=== PATIENT | male | born 1945 | race Caucasian/White ===

== ENCOUNTER → 2016-12-10 | Day surgery (SDC) | payer OTHER, BC ==
[2016-12-03 11:33] VITALS: BMI 33.0
[~2016-12-10] VITALS: Ht 167.6 cm; Wt 95.5 kg
[~2016-12-10] MED LIST: ASPCH81X PO; ATOR-24 PO; GLUCTAB7 PO; IBUP-1277 PO; LIDOCAINE HCL 2% 2 ML VIAL (20MG/ML) ONE; PROPOFOL IV EMULSION 10 MG/ML 20 ML VIAL IV ONE; TAMS0.4C38 PO
[2016-12-10 13:26] VITALS: Ht 167.6 cm; Wt 95.5 kg
--- NOTE | 2016-12-10 13:48 | Endo History and Physical ---
History & Physical Date of Service: Dec 10, 2016. Chief Complaint: HISTORY OF POLYPS Referring Physician: DR Walker MCKEON History of Present Illness For colonoscopy Past Surgical History Hx Cardiac Surgery: No Hx Internal Defibrillator: No Hx Pacemaker: No Hx Abdominal Surgery: Yes (HERNIA REPAIR) Hx of Implantable Prosthesis: No Hx Post-Op Nausea and Vomiting: No Hx Cancer Surgery: Yes (BCC REMOVALS) Hx Thoracic Surgery: No Hx Orthopedic: Yes (RT RCR) Hx Urinary Tract Surgery: No Family History None Social History Smoking Status: Former Smoker Hx Substance Use: No Hx Alcohol Use: Yes (OCCASIONAL) Allergies Coded Allergies: NO KNOWN DRUG ALLERGIES (Verified Allergy, Unknown, ., 12/10/16) Current Medications Reported Home Medications Medications Dose Route/Sig Max Daily Dose Days Date Category Advil (Ibuprofen) 200 Mg Tab 400 Mg PO DAILY PRN 03/19/16 Reported Glucosamine Chondroitin (Ftxnjpcyeoc-Bckeliqrmcb-Vhd C-) 1 Tab Tab 1,500 Mg PO QPM 03/19/16 Reported Aspirin Chewable (Aspirin) 81 Mg Chew 81 Mg PO QPM 09/28/15 Reported Flomax (Tamsulosin Hcl) 0.4 Mg Cap 0.4 Mg PO QPM 09/28/15 Reported Lipitor (Atorvastatin Calcium) 40 Mg Tab 40 Mg PO QPM 09/28/15 Reported Vital Signs Weight (Kilograms): 95.45 Height (Feet): 5 Height (Inches): 6 Date Time Temp Pulse Resp B/P (MAP) Pulse Ox O2 Delivery O2 Flow Rate FiO2 12/10/16 13:30 36.6 81 20 145/70 (95) 95 Room Air Physical Exam General Appearance: WD/WN Respiratory/Chest: Respiratory effort: no dyspnea Cardiovascular: Heart Auscultation: RRR Abdomen: Inspection & Palpation: soft Assessment and Plan Hx of polyps for colonoscopy
--- NOTE | 2016-12-10 14:16 | Discharge Instructions ---
Endoscopy Patient Instructions Date / Procedure(s) Performed Dec 10, 2016. Colonoscopy Allergy Information Coded Allergies: NO KNOWN DRUG ALLERGIES (Verified Allergy, Unknown, ., 12/10/16) Discharge Date / Findings Dec 10, 2016. polyps Medication Instructions Restart Stopped Medication(s): resume meds Reported Home Medications Medications Dose Route/Sig Max Daily Dose Days Date Category Advil (Ibuprofen) 200 Mg Tab 400 Mg PO DAILY PRN 03/19/16 Reported Glucosamine Chondroitin (Wyctjlnmity-Rvnzpuyjcik-Bwb C-) 1 Tab Tab 1,500 Mg PO QPM 03/19/16 Reported Aspirin Chewable (Aspirin) 81 Mg Chew 81 Mg PO QPM 09/28/15 Reported Flomax (Tamsulosin Hcl) 0.4 Mg Cap 0.4 Mg PO QPM 09/28/15 Reported Lipitor (Atorvastatin Calcium) 40 Mg Tab 40 Mg PO QPM 09/28/15 Reported Provider Instructions Activity Restrictions - No exercising or heavy lifting for 24 hours. - Do not drink alcohol the day of the procedure. - Do not drive a car or operate machinery until the day after the procedure. - Do not make any important decisions or sign important papers in 24 hours after the procedure. Following Day: - Return to full activity which may include returning to work/school. Diet Start your diet with liquids and light foods (jello, soup, juice, toast). Then eat your usual diet if not nauseated. Treatment For Common After Affects For mild abdominal pain, bloating, or excessive gas: - Rest - Eat lightly - Lie on right side Follow-Up Information Follow-up with DR Walker MCKEON as scheduled Anesthesia Information What You Should Know You have had a procedure that required some medicine to reduce anxiety and discomfort. This treatment is called moderate sedation. After receiving the treatment, you may be sleepy, but you will be able to breathe on your own. The effects of the treatment may last for several hours. Follow these instructions along with Activity/Diet recommendations noted above: * Do NOT do anything where dizziness or clumsiness would be dangerous. * Rest quietly at home today, then you can be up and about tomorrow. * Have a responsible person stay with you the rest of today. * You may have had an I.V. today. If so, you may take the dressing off later today. Recommendations Call your doctor if: * Trouble breathing * Continuous vomiting for more than 24 hours * Temperature above 101 degrees * Severe abdominal pain or bloating * Pain not relieved by pain medicine ordered * There is increased drainage or redness from any incision * A large amount of rectal bleeding greater than 2-3 tablespoons. (If you had a polyp/s removed or have hemorrhoids, a small amount of blood - from the rectum is to be expected.) * You have any unanswered questions or concerns. IN THE EVENT OF A SERIOUS EMERGENCY, GO TO THE NEAREST EMERGENCY ROOM Your discharge instructions were prepared by provider Jeferson Myrick. Patient Instructions Signature Page Jace Ragsdale Patient (or Guardian) Signature/Date: I have read and understand the instructions given to me by my caregivers. Caregiver/RN/Doctor Signature/Date: The above-named patient and/or guardian has received patient instructions on this date. + Original Patient Signature Page (only) stays with chart. Please make copy for patient.
--- NOTE | 2016-12-10 14:21 | GI REPORT ---
Procedure Date: 12/10/2016 1:44 PM Procedure: Colonoscopy Indications: Personal history of colonic polyps Medicines: Propofol total dose 320 mg IV, Lidocaine 40 mg IV Complications: No immediate complications. Estimated Blood Loss: Estimated blood loss was minimal. Procedure: Pre-Anesthesia Assessment: - Prior to the procedure, a History and Physical was performed, and patient medications, allergies and sensitivities were reviewed. The patient's tolerance of previous anesthesia was reviewed. - The risks and benefits of the procedure and the sedation options and risks were discussed with the patient. All questions were answered and informed consent was obtained. After I obtained informed consent, the scope was passed under direct vision. Throughout the procedure, the patient's blood pressure, pulse, and oxygen saturations were monitored continuously. The scope was introduced through the anus and advanced to the terminal ileum. The colonoscopy was performed without difficulty. The patient tolerated the procedure well. The quality of the bowel preparation was excellent. Findings: Two sessile polyps were found in the ascending colon. The polyps were 2 to 3 mm in size. These polyps were removed with a cold biopsy forceps. Resection and retrieval were complete. Estimated blood loss: none. A 4 mm polyp was found in the mid transverse colon. The polyp was sessile. The polyp was removed with a cold snare. Resection and retrieval were complete. Estimated blood loss was minimal. The terminal ileum appeared normal. Impression: - Two 2 to 3 mm polyps in the ascending colon, removed with a cold biopsy forceps. Resected and retrieved. - One 4 mm polyp in the mid transverse colon, removed with a cold snare. Resected and retrieved. - The examined portion of the ileum was normal. Recommendation: - Discharge patient to home (ambulatory). - Continue present medications. - Await pathology results. - Return to primary care physician MIKEN. Jeferson Myrick M.D. Jeferson Myrick MD 12/10/2016 2:19:54 PM This report has been signed electronically. Note Initiated On: 12/10/2016 1:44 PM I attest to the content of the Intraoperative Record and orders documented therein, exceptions below
[2016-12-10 14:51] VITALS: BP 127/71; PULSE 75; O2SAT 94
--- NOTE | 2016-12-10 14:58 | Anesthesiology Progress Note ---
Anesthesia Post Op Note Date & Time Dec 10, 2016 at 14:58 Vital Signs Vital Signs Past 12 Hours Date Time Temp Pulse Resp B/P (MAP) Pulse Ox O2 Delivery O2 Flow Rate FiO2 12/10/16 14:51 75 16 127/71 (89) 94 Room Air 12/10/16 14:36 75 16 123/76 (92) 92 Room Air 12/10/16 14:21 76 16 134/76 (95) 95 Room Air 12/10/16 13:30 36.6 81 20 145/70 (95) 95 Room Air Notes Mental Status: alert / awake / arousable, participated in evaluation Pt Amnestic to Procedure: Yes Nausea / Vomiting: adequately controlled Pain: adequately controlled Airway Patency, RR, SpO2: stable & adequate BP & HR: stable & adequate Hydration State: stable & adequate Anesthetic Complications: no major complications apparent
== END | disposition home or self-care (01) ==
LOC: C.GI 13:09
PROVIDERS: ATTEND Internal Medicine Gastroenterology
DX: D12.6 Benign neoplasm of colon, unspecified (principal); Z87.19 Personal history of other diseases of the digestive system; Z87.891 Personal history of nicotine dependence; Z79.899 Other long term (current) drug therapy

== ENCOUNTER → 2017-07-08 | Outpatient (CLI) | payer OTHER, BC ==
[~2017-07-08] MED LIST changes: -LIDOCAINE HCL 2% 2 ML VIAL (20MG/ML) ONE; -PROPOFOL IV EMULSION 10 MG/ML 20 ML VIAL IV ONE
[2017-07-08 10:58] LABS: BASO % 0.2 %; BASO ABS # 0.02 K/uL (0-0.2); EOS % 1.3 %; EOS ABS # 0.12 K/uL (0-0.5); HEMATOCRIT 48.8 % (42-52); HEMOGLOBIN 16.5 g/dL (14.0-18.0); LYMPH % 20.8 %; LYMPH ABS # 1.87 K/uL (1.2-3.4); MEAN CELL VOLUME 88.4 fL (80-100); MEAN CORPUSCULAR HEMOGLOBIN 29.9 pg (25-34); MEAN CORPUSCULAR HGB CONC 33.8 g/dl (32-36); MEAN PLATELET VOLUME 9.3 fL (7.4-10.4); MONO ABS # 0.81 K/uL (0.11-0.59); NEUT % 68.7 %; NEUT ABS # 6.17 K/uL (1.4-6.5); PLATELET COUNT 235 K/uL (130-400); RED CELL DISTRIBUTION WIDTH CV 13.5 % (11.5-14.5); WHITE BLOOD COUNT 8.99 K/uL (4.8-10.8)
[2017-07-08 11:07] LABS: HEMOGLOBIN A1C 6.3 % (4.5-5.6)
[2017-07-08 11:11] LABS: ALBUMIN 4.2 gm/dl (3.4-5.0); ALT/SGPT 33 U/L (12-78); BLOOD UREA NITROGEN 19 mg/dl (7-18); CALCIUM 9.6 mg/dl (8.5-10.1); CARBON DIOXIDE 29 mmol/L (21-32); CHOLESTEROL 142 mg/dl (0-200); GLUCOSE 129 mg/dl (70-99); POTASSIUM 4.3 mmol/L (3.5-5.1); SODIUM 138 mmol/L (136-145)
[2017-07-08 11:14] LABS: ALKALINE PHOSPHATASE 71 U/L (45-117); AST/SGOT 22 U/L (15-37); LDL CHOLESTEROL CALCULATED 76 mg/dl; TOTAL PROTEIN 8.3 gm/dl (6.4-8.2)
== END | disposition home or self-care (01) ==
LOC: C.LABBC 08:26
PROVIDERS: ATTEND Internal Medicine
DX: E78.5 Hyperlipidemia, unspecified (principal); R73.01 Impaired fasting glucose; I35.0 Nonrheumatic aortic (valve) stenosis; N40.1 Benign prostatic hyperplasia with lower urinary tract symptoms; N20.0 Calculus of kidney; D12.6 Benign neoplasm of colon, unspecified

== ENCOUNTER → 2017-12-23 | Outpatient (CLI) | payer OTHER, BC | END | disposition home or self-care (01) | LOC: C.LABBC 10:43 | PROVIDERS: ATTEND Family Medicine Adult Medicine | DX: R20.2 Paresthesia of skin (principal) ==

== ENCOUNTER 2023-04-03 06:31 | Observation (INO) ==
--- NOTE | 2023-03-06 08:44 | History & Physical Report ---
Date of Service March 06, 2023 date of surgery: 04/03/23 Procedure: Left Total Knee Arthroplasty Surgeon: Bob Porter, DO Assessment & Plan (1) Arthritis of knee, left: Plan: Further care discussed with patient and at this point in time has failed conser vative measures and would like to proceed with a left total knee replacement. Plan on discharge will be home with home health physical therapy. DVT prophylaxiswith TEDs, SCDs and will also place on aspirin 81 mg p.o. b.i.d. for a month postop. Patient will have follow up appointment in our office two weeks post op for staple/suture removal and re-evaluation. Patient otherwise has no other questions or concerns. The risks and benefits have been discussed including, but not limited to, risk of infection, nerve injury, stiffness, loss of motion, failure to improve, etc. Reasonable outcomes and options of treatment were discussed. An explanation of appropriate alternatives to the procedure that may be advantageous were discussed and their risks and benefits, as well as the risks and benefits of not proceeding with treatment. I offered to answer any additional inquiries concerning the treatment involved. All the patient's questions were answered. The patient is agreeable, understanding of the treatment plan and alternatives, and wishes to proceed with the treatment plan. History of Present Illness Chief Complaint: left knee pain Primary Care Provider: AIDEN Fuller Jace is a pleasant 78-year-old male who presented for preop evaluation prior to his upcoming left total knee replacement. He has a longstanding history of left knee pain which is gradually worsened and is now affecting his daily activities including walking standing using stairs. He has undergone prior cortisone injection as well as viscosupplementation without relief. He has complaints of pain decreased range of motion and weakness. Rates his current pain is a 7 out of 10. At discussing further care he wishes to proceed with a left total knee replacement Allergies Allergy/AdvReac Type Severity Reaction Status Date / Time grass pollen Allergy Nasal Verified 12/14/22 08:58 Congestion pollen extracts Allergy Sneezing Verified 12/14/22 08:58 jardiance Allergy Numbness Uncoded 12/14/22 08:58 Home Medications Medication Instructions Recorded Confirmed Type aspirin 81 mg tablet,delayed 81 mg PO DAILY #30 tabs 12/25/18 12/14/22 Rx release acetaminophen 500 mg tablet 1,000 mg PO Q6H PRN Pain 07/13/21 12/14/22 History (Tylenol Extra Strength) tamsulosin 0.4 mg capsule 0.4 mg PO DAILY #90 caps 10/02/22 12/14/22 Rx atorvastatin 40 mg tablet 40 mg PO DAILY #90 tabs 11/15/22 12/14/22 Rx metformin 1,000 mg tablet 1,000 mg PO BID #180 tabs 12/10/22 12/14/22 Rx Past Med/Surg History Medical History Environmental allergies History of Mohs micrographic surgery for skin cancer Skin cancer BASAL CELL Calculus of kidney HX Carpal tunnel syndrome of left wrist Type 2 diabetes mellitus Esophageal reflux Diabetes mellitus History of torn meniscus of left knee BPH w urinary obs/LUTS Hyperlipidemia Surgical History History of esophagogastroduodenoscopy (EGD) Hx of colonoscopy Hx of cardiac catheterization 12/2020 S/P CABG x 2 01/13/2021- [facility] [place]- FOLLOWS W/ DR YU LAST VISIT 6 MOS AGO S/P AVR (aortic valve replacement) 01/13/2021 [facility] [place] Hx of tonsillectomy History of vein stripping H/O vasectomy S/P rotator cuff repair S/P inguinal hernia repair Family History Father Aortic stenosis Hypertension Diabetes Myocardial infarction Heart disease Brother Coronary heart disease Diabetes Amyloidosis Ulcerative colitis Mother Malignant melanoma, metastatic Cancer Other No family history of bleeding disorder Denies family history of Ovarian cancer Prostate cancer Breast cancer Lung cancer Colorectal cancer Stroke Asthma Social History Smoking Status: Never smoker Tobacco Type: Cigarettes Age Started Using Tobacco: 20; Age Quit Using Tobacco: 22; packs per day: 0.025; Second Hand Exposure: No; Do You Dip or Chew Tobacco: No; Hx Alcohol Use: Yes Alcohol type: wine Alcohol Intake Frequency: 4 or More x per/Week Hx Substance Use: No Preferred Language: Korean Communication Ability: Effective Visual Impairment: Diminished Hearing Ability: Normal [place]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 Beliefs That Will Affect Care: None marital status: Current Living Situation: Spouse current occupational status: retired current occupation: Retired How many Children do You have: 3 Feels Safe at Home: Yes Childhood Exposure to Second-Hand Smoke: No Diet: regular Diet Comment: no junk caffeine: Yes Dental Care, Regularly: Yes Physical Activity Frequency: Daily Physical Activity Frequency Comment: walk Seatbelt Use: always Sunscreen Use: Yes Assistive Devices: Cane and Glasses Review of Systems Review of Systems: All systems reviewed & are unremarkable except as noted in HPI & below Constitutional: no fever, no chills and no sweats Respiratory: no cough and no dyspnea Cardiovascular: no chest pain, no dyspnea and no orthopnea Gastrointestinal: no abdominal pain, no nausea and no vomiting Musculoskeletal: as per Subjective / HPI Physical Exam Constitutional: WD/WN, vitals as above no acute distress Respiratory: normal respiratory effort, lungs clear to auscultation no respiratory distress, no labored breathing and does not use accessory muscles Cardiovascular: RRR, no murmur, no edema Gastrointestinal (Abdomen): normal bowel sounds, soft, nontender, no hepatosplenomegaly Musculoskeletal: Knee: + knee abnormal to inspection (LEFT KNEE), + effusion (+1 effusion), + limited ROM of knee (ROM 0/3/110), + knee ROM with crepitation, + joint line tenderness (medial joint line) and + Kyle's sign positive; no deformity, no skin erythema, no ecchymosis, no valgus laxity, no varus laxity, anterior drawer test negative, Gautam's sign negative and pivot shift test negative Results & Data Results & Data Diagnostic Findings Left Knee X-ray: left knee series confirms degenerative changes to the left knee, greatest medial compartments and patellofemoral joint, showing joint space narrowing, osteophyte formation and subchondral sclerosis. no acute bony pathology noted.
--- NOTE | 2023-03-06 12:15 | PAT Medication Instructions ---
Medication Instructions Date of Service March 06, 2023 Home Medications Medication Instructions Recorded metformin 1,000 mg tablet 1,000 mg PO BID #180 tabs 12/10/22 acetaminophen 500 mg tablet (Tylenol Extra Strength) 1,000 mg PO UD PRN Pain metformin 1,000 mg tablet 1,000 mg PO BID aspirin 81 mg tablet,delayed release 81 mg PO HS atorvastatin 40 mg tablet 40 mg PO HS tamsulosin 0.4 mg capsule 0.4 mg PO HS DO NOT take the morning of surgery metformin 1,000 mg tablet 1,000 mg PO BID Take morning of surgery With a small sip of water, OTHERWISE NOTHING TO EAT OR DRINK AFTER MIDNIGHT: acetaminophen 500 mg tablet (Tylenol Extra Strength) 1,000 mg PO UD PRN Pain (if needed) Take evening before surgery acetaminophen 500 mg tablet (Tylenol Extra Strength) 1,000 mg PO UD PRN Pain (if needed) metformin 1,000 mg tablet 1,000 mg PO BID aspirin 81 mg tablet,delayed release 81 mg PO HS atorvastatin 40 mg tablet 40 mg PO HS tamsulosin 0.4 mg capsule 0.4 mg PO HS Other Notes If you have any questions please call us at [phone] or [phone] or [phone] or [phone]
--- NOTE | 2023-03-07 09:11 | Anesthesiology Consultation ---
Date of Service March 07, 2023 Assessment & Plan (1) Encounter for pre-operative examination: - Infectious disease screening: Per assessment on 03/07/23: No known infectious disease contacts or current infectious disease symptoms. No noted Covid positive test result in past 90 days. - Outpatient joint assessment: Pt currently scheduled for inpatient pathway. If surgeon requests review for outpatient joint pathway, patient is not recommended candidate for outpatient joint program from anesthesia standpoint. - Cardiology visit (03/08/23): "Patient is limited in his activities because of his knee pain but he is still able to ambulate using a cane, however if he tries to ambulate more 3/4 of a mile the following day his knee is very sore. He just finished a 10 week tour of [place] and did quite a bit of walking there, including some hills. Patient has not experienced any limiting cardiopulmonary symptoms whatsoever. He states he has been feeling very well since he had his bypass and aortic valve replacement.. Based on his functional status without limiting cardiopulmonary symptoms, relatively recent bypass surgery in December 2020 using a KENNEDY graft, and his normal EKG tracing 03/07/2023 -- patient is a low to intermediate cardiac risk for his upcoming elective joint replacement surgery. There is no need for further ischemic workup at this time." - Per available records at time of initial review, no post-AVR Echo in our system (AVR performed 12/2020). Spoke with Nabil Elam PAC [place] [place]/08/23- from his perspective, no current indication to update Echo at this time/preoperatively. Case reviewed with Dr. Andrews. Post-AVR Echo would aid in determining anesthesia decisions for upcoming TKA (i.e. neuraxial vs. general). * LIZZETH done after AVR + CABGx2 01/13/2021 received. Per Echo report: Bioprosthetic AV is well seated with no paravalvular regurgitation, All the leaflets open, No aortic stenosis, Mean pressure gradient 4 mmHg. 12/[address] Andrews. No more recent Echo since AVR and not currently indicated per cardiology. At anesthesiologist discretion DOS regarding anesthesia type to be used. Chart Review Chart Review: Acceptable Risk for Surgery (pending evaluation DOS) and Patient seen in Pre Admission Testing Teaching & Discussion Pre-Anesthesia Teaching/Discussion Notes: Instructed NPO after midnight before surgery,except medications with 15 cc of water. Medication instructions provid ed according to the PAT guidelines. History Surgery Operation Date: 04/03/23 07:00 Proposed Procedures p Left Total Knee Arthroplasty - Bob Porter DO Height/Weight Height: 5 ft 6 in Weight: 102.6 kg Allergies Allergy/AdvReac Type Severity Reaction Status Date / Time grass pollen Allergy Unknown Nasal Verified 03/08/23 11:28 Congestion pollen extracts Allergy Unknown Sneezing Verified 03/08/23 11:28 [email or web address] AdvReac Unknown Numbness Uncoded 03/08/23 11:28 of mouth , lips and tongue, overactive bladder Medications Home Medications Medication Instructions Recorded Confirmed Last Taken acetaminophen 500 mg tablet 1,000 mg PO UD PRN Pain 07/13/21 03/08/23 06/05/22 (Tylenol Extra Strength) metformin 1,000 mg tablet 1,000 mg PO BID #180 tabs 12/10/22 03/08/23 Unknown aspirin 81 mg tablet,delayed 81 mg PO HS 03/06/23 03/08/23 Unknown release atorvastatin 40 mg tablet 40 mg PO HS 03/06/23 03/08/23 Unknown tamsulosin 0.4 mg capsule 0.4 mg PO HS 03/06/23 03/08/23 Unknown Past Medical History Medical History Valvular heart disease Bioprosthetic AVR (2020) CAD (coronary artery disease) CABG x2 (2020) Follows with [facility] cardio Neuropathy finger tips Osteoarthritis Enlarged prostate Skin cancer BCC, multiple Calculus of kidney Hx Type 2 diabetes mellitus Esophageal reflux Hx History of torn meniscus of left knee Hyperlipidemia Exercise / Class Metabolic Activity II 4-5 Yardwork/Stairs/Walk up hill Past Family History Family History Father Aortic stenosis Hypertension Diabetes Myocardial infarction Heart disease Brother Coronary heart disease Diabetes Amyloidosis Ulcerative colitis Mother Malignant melanoma, metastatic Cancer Other No family history of bleeding disorder Denies family history of Ovarian cancer Prostate cancer Breast cancer Lung cancer Colorectal cancer Stroke Asthma Past Surgical History Surgical History History of Mohs micrographic surgery for skin cancer x3 History of esophagogastroduodenoscopy (EGD) Hx of colonoscopy Hx of cardiac catheterization 12/2020 S/P CABG x 2 [place] [place] S/P AVR (aortic valve replacement) [place]13/[place] [facility] [place]x of tonsillectomy History of vein stripping H/O vasectomy S/P rotator cuff repair S/P inguinal hernia repair Past Anesthesia History No Hx of Anesthesia Complications and No Family Hx of Anesthesia Complications History of PONV No Hx of PONV and No Hx of Motion Sickness Social History Smoking Status: Former smoker Do You Dip or Chew Tobacco: No Smoking End Date: Quit 1968 Hx Alcohol Use: Yes Alcohol type: beer, wine and hard liquor alcohol intake frequency: a few times a week Hx Substance Use: No substance use type: does not use Review of Systems Patient denies chest pain, shortness of breath, dyspnea on exertion, fever, chills, cough, wheezing, palpitations. Physical Exam Vital Signs VITALS BP 142/88 P 76 TEMP 97.8 SP02 94%RA RESP 18 PHYSICAL Decreased cervical extension range of motion. Full TMJ range of motion. TMD 4 finger breaths Mallampati Score 1 Dentition: missing side, several implants Lungs: clear throughout to auscultation Cardiac: regular rate and rhythm, II-III/ systolic murmur Spine: normal Carotid arteries: negative bruit Extremities: no LE edema Short neck Lab Results Anesthesia Preop Results Results Anesthesia Widget: WBC 8.12 K/ul (4.8-10.8) 03/07/23 Hgb 14.9 g/dl (14.0-18.0) 03/07/23 Hct 44.9 % (42.0-52.0) 03/07/23 Plt 223 K/uL (130-400) 03/07/23 Na 138 mmol/L (136-145) 03/07/23 K 4.3 mmol/L (3.5-5.1) 03/07/23 Cl 103 mmol/L (98-107) 03/07/23 CO2 27 mmol/L (21-32) 03/07/23 BUN 19 mg/dl (6-23) 03/07/23 Creat 1.06 mg/dl (0.6-1.4) 03/07/23 Glucose Level 211 mg/dl (70-99(Fasting)) H 03/07/23 PT 11.5 Seconds (9.0-12.0) 03/07/23 PTT 28.3 Seconds (21.0-31.0) 03/07/23 INR 1.1 (0.9-1.1) 03/07/23 HA1c 7.3 % (4.5-5.6) H 03/07/23 Urine Color Yellow 03/08/23 Urine Appearance Clear (Clear) 03/08/23 Urine pH 5.5 (4.5-7.5) 03/08/23 Urine Specific [place] 1.019 (1.000-1.030) 03/08/23 Urine Protein Negative (Negative) 03/08/23 Urine Glucose (UA) 1+ (Negative) H 03/08/23 Urine Ketones Negative (Negative) 03/08/23 Urine Blood Negative (Negative) 03/08/23 Urine Nitrite Negative (Negative) 03/08/23 Urine Bilirubin Negative (Negative) 03/08/23 Urine Urobilinogen Negative (Negative) 03/08/23 Urine Leukocyte Esterase Negative (Negative) 03/08/23 Blood Type A Negative 03/07/23 Antibody Screen NEGATIVE 03/07/23 Testing Electrocardiogram Date: 03/07/23 NSR at 75bpm. NS TWA. Chest X-Ray Date: 03/07/23 FINDINGS: Cardiac silhouette is enlarged. Median sternotomy with prosthetic aortic valve. No pneumothorax, pleural effusion or airspace consolidation. Bones appear grossly intact. IMPRESSION: No acute process. Echocardiogram Post-op AVR LIZZETH Date: 01/13/21 S/p AV replacement and CABG x2 (LIMALAD, SVGOM 2). LVEF 45-50% with inotropes and epicardial pacing present. No regional wall motion abnormality. RV appears dilated with systolic function decreased from pre-CPB. RV FAC 40% post-CPB. No new pericardial effusion is seen inferior lateral and anterior to LV. Largest pocket about 1 cm. S/p bioprosthetic AV replacement. Bioprosthetic AV is well seated with no paravalvular regurgitation. All the leaflets open. No aortic stenosis. Mean pressure gradient 4 mmHg. MR appears trace after AVR. Unchanged mild TR. Cardiac Catheterization Date: 12/19/20 Summary: Severe multivessel coronary artery disease. 20 to 30% ostial left main. Calcified, diffuse proximal to mid LAD up to 70% (FFR 0.72). 95+% mid circumflex at bifurcation with large OM 2. 100% chronic total occlusion mid RCA. Distal vessel fills via [id number] collaterals. Moderate to severe aortic stenosis by echo Recommendations: Refer to [facility] CT surgery for consideration of AVR and CABG.
[~2023-04-03 06:31] MED LIST changes: +ACETAMINOPHEN 500 MG TAB PO SCH; -ASPCH81X PO; -ATOR-24 PO; +BUPIVACAINE 0.5 % 5 MG/1 ML PF 10ML VIAL ONE; +CeleBREX 200 MG CAP PO SCH; +FAMOTIDINE 20 MG TAB PO SCH; +GABAPENTIN 600 MG DOSE PO SCH; -GLUCTAB7 PO; -IBUP-1277 PO; +LR 500ML BOLUS, THEN 15ML/HR IV SCH; +LR 60ML/HR IV SCH; +METOCLOPRAMIDE HCL 10 MG TABLET PO SCH; +ROPIVACAINE 0.5% 5 MG/ML 30 ML VIAL ONE; +ROPIVACAINE 0.5% HCL/PF 150 MG, BUPIVACAINE 0.75% MPF 20 ML, EPINEPHrine 30MG/30ML (OR ... INSTIL SCH; -TAMS0.4C38 PO; +TRANEXAMIC ACID / 0.7% NACL 1000MG/100ML BAG IV SCH; +ceFAZolin 2000MG 2,000 MG/15 ML SYR IV SCH; +dexAMETHasone 4 MG TAB PO SCH
[2023-04-03] MEDS ORDERED: ORTHO JOINT ANESTHETIC ONE (07:00)
[2023-04-03] MEDS ORDERED: PROPOFOL IV EMULSION 10 MG/ML 20 ML VIAL IV ONE (07:07)
[2023-04-03] MEDS ORDERED: MIDAZOLAM HCL 1 MG/ML 2ML VIAL ONE (07:08)
[2023-04-03] MEDS ORDERED: fentaNYL citrate PF 100 MCG/2 ML VIAL ONE (07:08)
--- NOTE | 2023-04-03 07:10 | History & Physical Bridge Note ---
Date of Service April 03, 2023 History & Physical Bridge Note I have examined the patient, reviewed the History & Physical and in the interval since the performance of the History & Physical I have noted the following changes of clinical significance: no changes noted
[2023-04-03] MEDS ORDERED: PHENYLEPHRINE HCL 10 MG/ML VIAL ONE (07:15)
[2023-04-03] MEDS ORDERED: fentaNYL citrate PF 100 MCG/2 ML VIAL IV PRN (07:46)
[2023-04-03] MEDS ORDERED: ATROPINE SULFATE 0.1 MG/ML 10ML SYR IV PRN (07:46)
[2023-04-03] MEDS ORDERED: ONDANSETRON INJ 2 MG/ML 2 ML VIAL IV PRN ×2 (07:46→13:35)
[2023-04-03] MEDS ORDERED: ePHEDrine sulfate 50 MG/ML AMP IV PRN (07:46)
[2023-04-03] MEDS ORDERED: TRANEXAMIC ACID / 0.7% NACL 1000MG/100ML BAG IV ONE ×2 (07:55→07:57)
--- NOTE | 2023-04-03 09:33 | Operative Report ---
Post Operative Report Pre & Post Diagnosis Operation Date: 04/03/23 08:00 Pre-Op Diagnosis: Left knee osteoarthritis. Post-Op Diagnosis: Left knee osteoarthritis. I identified the patient and participated in the time-out.: Yes Procedure Operation Date: 04/03/23 08:00 Actual Procedures p Left Total Knee Arthroplasty(Left) -Utilizing [facility] 2 patient-matched total knee arthroplasty size femur 6 tibia 5 poly 10 patella 32 oval Bob Porter DO Surgeon Bob Porter DO [employer] President Talha [place] Estimated Blood Loss 5 Findings Consistent with Post-Op Diagnosis Patient presents with severe end-stage tricompartmental degenerative joint disease varus alignment subchondral sclerosis marginal osteophytes moderate to large effusion Specimens Bone and cartilage Drains Medium bore Hemovac Anesthesia Type MAC Spinal Regional Complications none Disposition Accompanied Patient To Recovery: No Disposition: Recovery Room Indications Patient presents with severe end-stage tricompartmental DJD nonresponse to conservative management patient is failed attempted conservative management occluding physical therapy anti-inflammatories relative rest activity modification corticosteroid injection viscosupplementation the above intraoperative findings were noted Description of Procedure After proper prepping and draping of the left lower extremity anterior midline incision was made over the region of the extensor extensor mechanism after meticulous hemostasis was obtained and maintained in subcutaneous tissues a medial parapatellar incision was made The patella was subluxed lateralward the medial lateral gutter were cleaned from any hypertrophic synovitis and scar tissue of the distal femoral block was placed and the distal femoral osteotomy cut was made subsequently the chamfers anterior and posterior osteotomy cuts were made utilizing the 4-in-1 block the tibia was subsequently subluxed anteriorward medial and ateral meniscal remnants were excised in their entirety remnants of the anterior and posterior cruciate ligaments were excised in their entirety excellent exposure of the proximal tibia was obtained the tibial osteotomy guide was placed on the proximal tibial osteotomy cut was made once again the knee was irrigated with copious amounts of sterile saline solution the patella was subsequently everted lateralward thickened scar tissue around the patella was removed the patella was subsequently cut utilizing a freehand technique and was drilled prepared for final preparation and placement of patella socially flexion-extension gaps were checked and the equal and symmetric trials were placed to the appropriate femoral and tibial trials with poly-spacer being placed for equal flexion and extension gaps and full range of motion including extension to 0 and flexion to 140 the trial components after having been taken to recovery range of motion was subsequently removed meticulous hemostasis was obtained and maintained subsequently a knee block injection of joint cocktail including ropivacaine 0.5% 150 mg. Bupivacaine 0.5% epinephrine 1-200,030 mL's toradol 30 mg dexamethasone 4 mg ketamine 10 mg clonidine 100 micrograms normal saline solution 30 mg was infiltrated into the soft tissues of the posterior knee medial lateral gutters and periosteal synovium special attention was paid to protect neurovascular structures at all times subsequently trial components having been removed the knee was irrigated with sterile saline solution. debris was removed the proximal tibia was subsequently prepared and was made ready for the placement of the tibial component tibial component was also cemented and tamped into position the femoral component was subsequently placed and cemented in the position the patellar component was subsequently cemented in position because hemostasis once again obtained and maintained wound having been thoroughly irrigated with debridement and debridement lavage was performed as well as a medial parapatellar incision closed with #1 Vicryl in interrupted fashion subcutaneous was closed with #2 Vicryl skin was closed with skin clips. PA-C was necessary for prepping and drapping as well as wound closure of deep fascia Sub cutaneous tissue and skin and was necessary for the case. A sterile compressive dressing was placed patient was taken to recovery in stable condition of report dictated by German I attest to the content of the Intraoperative Record and any orders documented therein. Any exceptions are noted below.Due to the complex nature of the procedure, the entire surgery was performed with the operational assistance ofTalha [place]. The sourcing assistant, under direct supervision, was involved in the actual performance of all aspects of the surgical procedure including hemostasis, tissue retraction and incision, instrument management, patient positioning, and wound closure. I attest to the content of the Intraoperative Record and any orders documented therein. Any exceptions are noted below.
--- NOTE | 2023-04-03 11:59 | XRay Report ---
XR knee LT 1 or 2V routine CLINICAL HISTORY: Surgical Post Op TECHNIQUE: 2 views of the left knee were obtained. Comparison: None available at the time of this dictation. FINDINGS: Patient is status post total knee arthroplasty with expected postsurgical changes including soft tiss ue swelling and subcutaneous emphysema. No periarticular lucency or hardware fracture is seen. IMPRESSION: Expected postoperative appearance status post placement of total knee arthroplasty. ACT 112: Negative or not required by law. Electronically signed by: Gallito Fernandez M.D. 04/03/2023 11:57 AM
--- NOTE | 2023-04-03 12:47 | Anesthesiology Progress Note ---
Date of Service April 03, 2023 Anesthesia Post Procedure Vital Signs Vital Signs: Temp Pulse Pulse Resp BP BP Pulse Ox 04/03/23 12:45 98.2 F 78 16 114/69 96 04/03/23 12:35 77 12 108/68 95 04/03/23 12:25 78 13 110/69 95 04/03/23 12:15 82 14 104/72 94 04/03/23 12:05 84 14 115/68 94 04/03/23 11:55 87 14 116/69 95 04/03/23 11:45 98.6 F 79 17 111/67 95 04/03/23 11:35 85 14 112/72 95 04/03/23 11:25 83 13 105/66 94 04/03/23 11:15 87 14 109/70 94 04/03/23 11:05 86 12 108/69 94 04/03/23 10:55 85 13 102/65 94 04/03/23 10:45 86 12 98/64 L 94 04/03/23 10:35 88 12 113/67 94 04/03/23 10:25 93 H 16 117/69 93 04/03/23 10:15 97 H 20 127/74 94 04/03/23 10:08 97.2 F L 94 H 16 131/80 95 04/03/23 06:54 97.7 F 86 18 159/81 H 93 O2 Del Method O2 Flow Rate 04/03/23 12:45 Nasal Cannula 2 04/03/23 12:35 Nasal Cannula 2 04/03/23 12:25 Nasal Cannula 2 04/03/23 12:15 Nasal Cannula 2 04/03/23 12:05 Nasal Cannula 2 04/03/23 11:55 Nasal Cannula 2 04/03/23 11:45 Nasal Cannula 2 04/03/23 11:35 Nasal Cannula 2 04/03/23 11:25 Nasal Cannula 2 04/03/23 11:15 Nasal Cannula 2 04/03/23 11:05 Nasal Cannula 2 04/03/23 10:55 Nasal Cannula 2 04/03/23 10:45 Nasal Cannula 2 04/03/23 10:35 Nasal Cannula 2 04/03/23 10:25 Nasal Cannula 3 04/03/23 10:15 Nasal Cannula 3 04/03/23 10:08 Nasal Cannula 3 04/03/23 06:54 Room Air Transfer of Care Handoff Completed per policy Notes Mental Status: alert / awake / arousable and participated in evaluation Patient Amnestic to Procedure: Yes Nausea / Vomiting: adequately controlled Pain: adequately controlled Airway Patency, RR, SpO2: stable & adequate BP & HR: stable & adequate Hydration State: stable & adequate Neuraxial Anesthesia: was administered and sensory block is resolving Anesthetic Complications: no major complications apparent and Pt Satisfied with anesthetic care
[2023-04-03] MEDS ORDERED: NALOXONE HCL 0.4 MG/1 ML VIAL/CARP IV PRN (13:35)
[2023-04-03] MEDS ORDERED: diphenhydrAMINE 50 MG/ML VIAL IV PRN (13:35)
[2023-04-03] MEDS ORDERED: MAGNESIUM HYDROXIDE SUSP 30 ML UDC PO PRN (13:35)
[2023-04-03] MEDS ORDERED: PHARMACY GLYCEMIC MGMT CONSULT PRN (13:35)
[2023-04-03] MEDS ORDERED: bisacodyL 10 MG SUPP PR PRN (13:35)
[2023-04-03] MEDS ORDERED: HYDROmorphone INJ 0.5 MG/0.5 ML SYR IV PRN (13:35)
[2023-04-03] MEDS ORDERED: LANTUS PER UNIT CHARGE SC STA (14:03)
--- NOTE | 2023-04-03 14:07 | Pharmacy Report ---
Pharmacy Glycemic Short Note 2 - Date of Service April 03, 2023 - Glycemic Short BSG Results (Last 24 hours): 04/03/23 04/03/23 07:02 10:11 POC Glucose 139 H 188 H OUTPATIENT ANTIDIABETIC REGIMEN: * metformin 1gm PO BID HbA1C: 7.3% (03/07/23) ASSESSMENT: * Pt is an 78 year old male POD #0 left total knee arthroplasty. History of DM2 on metformin. Pharmacy consulted to assist with glycemic management. * Pre op BSG, 139mg/dL. Post-op, 188mg/dL. Received 8mg PO intra-op dex. No ongoing steroids. Ordered a diet. * Lantus 10 units X 1 dose now given steroids intra-op and post-op BSG >180mg/dL. Reassess need for basal in AM. Novolog moderate stress scale ACHS with overnight checks tonight. PLAN FOR INPATIENT GLYCEMIC CONTROL: * Hold outpatient oral diabetes medications * Basal insulin * Lantus 10 units SQ X 1 * Bolus insulin * NovoLog per scale ACHS or Q6hrs while NPO * Goal Range: Low 110 mg/dL - High 140 mg/dL * Correction Factor: 25 mg/dL/unit * Nutritional / Prandial insulin per carb ratio of 1 unit per 9 grams CHO consumed
[2023-04-03] MEDS ORDERED: DEXTROSE 50% 50 ML SYRINGE IV PRN (14:15)
[2023-04-03] MEDS ORDERED: GLUCAGON FOR INJ 1 MG VIAL IM PRN (14:15)
[2023-04-03] MEDS ORDERED: CARBOHYDRATES FOR HYPOGLYCEMIA PO PRN (14:15)
[2023-04-03] MEDS ORDERED: GLUCOSE 10 TAB/TUBE PO PRN (14:15)
[2023-04-03] MEDS ORDERED: GLUCOSE 40% GEL 15 GM TUBE PO PRN (14:15)
[2023-04-03] MEDS: SODIUM CHLORIDE 0.9% 1,000 ML IV SCH (14:45)
[2023-04-03] MEDS: ACETAMINOPHEN 500 MG TAB PO SCH ×2 (14:45→22:32)
[2023-04-03] MEDS: INSULIN ASPART PER UNIT CHARGE SC SCH ×3 (14:47→21:31)
[2023-04-03] MEDS: ceFAZolin 2000MG 2,000 MG/15 ML SYR IV SCH (16:20)
[2023-04-03] MEDS: ASPIRIN 81 MG ECTAB PO SCH (20:15)
[2023-04-03] MEDS: DOCUSATE SODIUM 100 MG CAP PO SCH (20:16)
[2023-04-03] MEDS ORDERED: ATORVASTATIN 40 MG TAB PO SCH (21:00)
[2023-04-03] MEDS ORDERED: SENNA 8.6 MG TAB PO SCH (21:00)
[2023-04-03] MEDS ORDERED: TAMSULOSIN HCL 0.4 MG CAP PO SCH (21:00)
[2023-04-03] MEDS ORDERED: metFORMIN HCL 500 MG TAB PO SCH (21:00)
[2023-04-03] MEDS: oxyCODONE HCL IR 5 MG TAB (IMMEDIATE RELEASE) PO PRN (23:29)
[2023-04-04] MEDS: INSULIN ASPART PER UNIT CHARGE SC SCH ×4 (00:18→12:45)
[2023-04-04] MEDS: ceFAZolin 2000MG 2,000 MG/15 ML SYR IV SCH (00:28)
[2023-04-04] MEDS: SODIUM CHLORIDE 0.9% 1,000 ML IV SCH (01:29)
[2023-04-04] MEDS: oxyCODONE HCL IR 5 MG TAB (IMMEDIATE RELEASE) PO PRN ×3 (04:40→14:52)
[2023-04-04] MEDS: ACETAMINOPHEN 500 MG TAB PO SCH ×2 (05:34→13:58)
--- NOTE | 2023-04-04 07:55 | Orthopedic Progress Note ---
Date of Service April 04, 2023 Assessment & Plan (1) Arthritis of knee, left: Plan: Postop day 1 status post left total knee arthroplasty. PT OT protocols. Weightbearing as tolerated. DVT prophylaxis-aspirin p.o. twice daily, SCDs, AVA hale. Pain management as written. We will see what his current laboratory values are and possibly add Toradol to his pain management regimen. Labs pending. Urinary retention-patient states that the first time he had a straight catheterization the obtained over 700 cc of urine. The second time was around 350. He states he was able to urinate a little bit this morning into his bedside container. We discussed the possibility of needing a Linton catheter that might have to remain for a week or so and involve urology. We will continue his tamsulosin at this time and follow his urine output and ability to urinate. DC planning-patient is planning for discharge to home with outpatient PT. We will recheck him later this afternoon to evaluate his physical therapy protocol, pain control, ability to urinate. Admission and Anticipated Discharge Date Admission Date: April 03, 2023 Subjective Postop day 1 Patient sitting up in bed awake and alert. States he was having some pain last night and utilized oxycodone. We discussed use of pain medications during his stay which he is in agreement. Patient states that he had urinary retention as well and had to be straight cathed twice last night. He is currently on tamsulosin 0.4 mg nightly. We discussed that if he could not urinate that he would likely have to have a urinary Linton catheter placed. Patient understands. No other complaints at this time. Currently he has oxygen running through nasal cannula which he states he dropped down to 88%. He denies sleep apnea. We discussed that he would likely be taken off the oxygen this morning for trial run and as long as he is above 90% on room air that he would no longer need the oxygen. He denies shortness of breath, chest pain, lightheadedness. Physical Exam Physical Exam: Dressings are clean, dry, and intact. Calves are soft nontender. Neurovascular intact. Toes are mobile. Hemovac drainage was 250 cc from the previous shift. Results & Data Vital Signs (Past 12 Hours) Vital Signs Temp Pulse Resp BP Pulse Ox O2 Del Method O2 Flow Rate 04/04/23 04:26 36.5 C 85 16 144/73 H 94 Nasal Cannula 2 12/07/23 00:37 36.7 C 73 18 114/64 93 Room Air 04/03/23 20:20 Room Air
[2023-04-04] MEDS: DOCUSATE SODIUM 100 MG CAP PO SCH (08:05)
[2023-04-04] MEDS: ASPIRIN 81 MG ECTAB PO SCH (08:05)
[2023-04-04 08:12] LABS: Hemoglobin 11.1 g/dl (14.0-18.0); Mean Corpuscular Hemoglobin 28.5 pg (25.0-34.0); Mean Corpuscular Hgb Conc 32.6 g/dL (32.0-36.0); Mean Corpuscular Volume 87.4 fL (80.0-100.0); Mean Platelet Volume 9.1 fL (9.4-12.4); Platelet Count 206 K/uL (130-400); RDW Coefficient of Variation 13.7 % (11.5-14.5); RDW Standard Deviation 43.8 fL (36.4-46.3); Red Blood Count 3.89 M/uL (4.70-6.10); White Blood Count 15.28 K/ul (4.8-10.8)
[2023-04-04 08:37] LABS: Calcium 8.6 mg/dl (8.6-10.3); Creatinine Clr Calc Pharmacy 62.2 ml/min; Est GFR (African American) 76.4 ml/min; Potassium 4.3 mmol/L (3.5-5.1)
[2023-04-04] MEDS ORDERED: MULTIVITAMIN TAB PO SCH (09:00)
[2023-04-04] MEDS ORDERED: KETOROLAC TROMETHAMINE 15 MG/ML VIAL IV SCH (12:00)
--- NOTE | 2023-04-04 14:18 | Pharmacy Report ---
Pharmacy Glycemic Sign Off Nt - Date of Service April 04, 2023 - Assessment & Plan ASSESSMENT: * Pharmacy was consulted by Talha Mcclellan on 04/03 for glycemic control and to write orders per [facility] inpatient glycemic control protocol. * Major changes made by pharmacy to antidiabetic regimen include: * Added novolog and one time dose of Lantus yesterday to cover steroids * Regimen has only required minor adjustments over the past 24hrs to achieve this level of control * Do not anticipate further changes in patient status that would quickly deteriorate glycemic control (i.e. patient to be NPO for upcoming procedure, steroids tapering, starting tube feedings, etc). * Please see recommendations for outpatient antidiabetic regimen below. PLAN FOR INPATIENT GLYCEMIC CONTROL: No changes needed to current regimen. * Resumed home metformin this evening 1 gm bidm * Continue NovoLog per scale ACHS/Q6hrs while NPO * Goal range = 110 - 140 mg/dl * CF = 20 mg/dl/unit * CR = 1 unit for ever -- g CHO consumed * Pharmacy is signing off of glycemic consult and will no longer be making adjustments to inpatient regimen. Please feel free to re-consult if needed. Thank you.
--- NOTE | 2023-04-04 14:46 | Communication Note ---
Date of Service: April 04, 2023 Pt progressing well this afternoon. Completed PT/OT. He states he is now urinating well on his own. No further need for straight cath. Plan for dc to ho me today with drain and dressing. Drain output still a bit high for drain removal. Pt to call the office in AM to schedule a time to come in.
[2023-04-04] MEDS ORDERED: metFORMIN HCL 500 MG TAB PO SCH (17:00)
--- NOTE | 2023-04-09 13:45 | Discharge Summary ---
Date of Service April 09, 2023 Admission HPI Per Admitting Provider Mary Jo is a pleasant 78-year-old male who presented for preop evaluation prior to his upcoming left total knee replacement. He has a longstanding history of left knee pain which is gradually worsened and is now affecting his daily activities including walking standing using stairs. He has undergone prior cortisone injection as well as viscosupplementation without relief. He has complaints of pain decreased range of motion and weakness. Rates his current pain is a 7 out of 10. At discussing further care he wishes to proceed with a left total knee replacement Admission Exam Per Admitting Provider Physical Exam Constitutional: WD/WN, vitals as above no acute distress Respiratory: normal respiratory effort, lungs clear to auscultation no respiratory distress, no labored breathing and does not use accessory muscles Cardiovascular: RRR, no murmur, no edema Gastrointestinal (Abdomen): normal bowel sounds, soft, nontender, no hepatosplenomegaly Musculoskeletal: Knee: + knee abnormal to inspection (LEFT KNEE), + effusion (+1 effusion), + limited ROM of knee (ROM 0/3/110), + knee ROM with crepitation, + joint line tenderness (medial joint line) and + Kyle's sign positive; no deformity, no skin erythema, no ecchymosis, no valgus laxity, no varus laxity, anterior drawer test negative, Gautam's sign negative and pivot shift test negative Principal Diagnosis left knee osteoarthritis Discharge Data Allergies Allergy/AdvReac Type Severity Reaction Status Date / Time grass pollen Allergy Unknown Nasal Verified 04/03/23 07:03 Congestion pollen extracts Allergy Unknown Sneezing Verified 04/03/23 07:03 jardiance AdvReac Unknown Numbness Uncoded 04/03/23 07:03 of mouth , lips and tongue, overactive bladder Procedures Performed Operation Date: 04/03/23 08:00 Actual Procedures p Left Total Knee Arthroplasty(Left) - Bob Porter DO Ordered Studies 04/03/23 05:00 US - OR guided needle placemen Routine Hospital Course (1) Arthritis of knee, left: Patient: MARY JO WHITNEY Admit Date: 04/03/23 MR#: [id number] Att Phy: Bob Porter,Steven Acct ID: [id number] Love Phy: Tosin Talley DO Date: 1945 Elbert Phy: Age: 78 Location: 3N Sex: M Room/Bed: N3781 cc: ~ *NOTICE TO RECEIVING [employer]EN [employer]Y/AGENCY This information is strictly Confidential and protected under [place] law. [place] law prohibits you from making any further disclosure of this information unless further disclosure is expressly permitted by the written consent of the person to whom it pertains or is authorized by law. A general authorization for the release of medical or other information is not sufficient for this purpose. Hospital accepts no responsibility if the information is made available to any other person, INCLUDING THE PATIENT. Date of Service April 04, 2023 Assessment & Plan (1) Arthritis of knee, left: Plan: Postop day 1 status post left total knee arthroplasty. PT OT protocols. Weightbearing as tolerated. DVT prophylaxis-aspirin p.o. twice daily, SCDAVA rodriguez. Pain management as written. We will see what his current laboratory values are and possibly add Toradol to his pain management regimen. Labs pending. Urinary retention-patient states that the first time he had a straight catheterization the obtained over 700 cc of urine. The second time was around 350. He states he was able to urinate a little bit this morning into his bedside container. We discussed the possibility of needing a Linton catheter that might have to remain for a week or so and involve urology. We will con tinue his tamsulosin at this time and follow his urine output and ability to urinate. DC planning-patient is planning for discharge to home with outpatient PT. We will recheck him later this afternoon to evaluate his physical therapy protocol, pain control, ability to urinate. Admission and Anticipated Discharge Date Admission Date: April 03, 2023 Subjective Postop day 1 Patient sitting up in bed awake and alert. States he was having some pain last night and utilized oxycodone. We discussed use of pain medications during his stay which he is in agreement. Patient states that he had urinary retention as well and had to be straight cathed twice last night. He is currently on tamsulosin 0.4 mg nightly. We discussed that if he could not urinate that he would likely have to have a urinary Linton catheter placed. Patient understands. No other complaints at this time. Currently he has oxygen running through nasal cannula which he states he dropped down to 88%. He denies sleep apnea. We discussed that he would likely be taken off the oxygen this morning for trial run and as long as he is above 90% on room air that he would no longer need the oxygen. He denies shortness of breath, chest pain, lightheadedness. Physical Exam Physical Exam: Dressings are clean, dry, and intact. Calves are soft nontender. Neurovascular intact. Toes are mobile. Hemovac drainage was 250 cc from the previous shift. Results & Data Vital Signs (Past 12 Hours) Vital Signs Temp Pulse Resp BP Pulse Ox O2 Del Method O2 Flow Rate 04/04/23 04:26 36.5 C 85 16 144/73 H 94 Nasal Cannula 2 04/04/23 00:37 36.7 C 73 18 114/64 93 Room Air 04/03/23 20:20 Room Air Signed By: <Electronically signed by Sabino Lopez MD> 04/04/23 1354 <Electronically signed by Talha Mcclellan PA-C> 04/04/23 0755 Created: 04/04/23 0750 Patient: MARY JO WHITNEY Admit Date: 04/03/23 MR#: [id number] Att Phy: Bob Porter D.O. Acct ID: [id number] Love Phy: Tosin Talley DO Date: 1945 Fam Phy: Age: 78 Location: 3N Sex: M Room/Bed: N378 cc: ~ *NOTICE TO RECEIVING GREEN PARTY/AGENCY This information is strictly Confidential and protected under [place] law. [place] law prohibits you from tess ng any further disclosure of this information unless further disclosure is expressly permitted by the written consent of the person to whom it pertains or is authorized by law. A general authorization for the release of medical or other information is not sufficient for this purpose. Hospital accepts no responsibility if the information is made available to any other person, INCLUDING THE PATIENT. Date of Service: April 04, 2023 Pt progressing well this afternoon. Completed PT/OT. He states he is now urinating well on his own. No further need for straight cath. Plan for dc to home today with drain and dressing. Drain output still a bit high for drain removal. Pt to call the office in AM to schedule a time to come in. Signed By: <Electronically signed by Sabino Lopez MD> 04/05/23 0802 <Electronically signed by Talha Mcclellan PA-C> 04/04/23 1446 Created: 04/04/23 1444 Total Time Total Time Spent Total Time Spent (In Minutes): 10 Discharge Plan Discharge Items Patient Disposition: Home - Self-Care Reason For Visit: LEFT TKA Discharge Diagnosis: Left knee osteoarthritis Activity: Per Instructions section Weightbearing: Full weightbearing Non-emergency contact: Surgeon Call non-emergency contact if: you have any medication questions, your pain is not controlled, your temperature is above 101.5, your wound has increased redness and your wound has increased drainage Follow-up/Referrals: Catherine Newton CRNP [Nurse Practitioner] - Bob Porter DO [Surgeon] - (Follow-up with Dr. Porter or his PA in 2 weeks from the day of surgery for your first postoperative visit.) Diet: Carb Consistent or DM2 Addtl Attending Provider Instructions: ACTIVITY RECOMMENDATIONS: SELF CARE INSTRUCTIONS AFTER TOTAL KNEE REPLACEMENT A. You may need to continue a physical therapy program after discharge from the hospital. There are several options available to you. Your doctor will assist you in selecting the best one for you. 1. An out-patient facility 2 to 3 times a week for therapy or home therapy. 2. Continue working on all exercises taught to you in the hospital. Your goals should be to increase bending of your knee to 90 degrees and beyond and to fully straighten your knee. B. You may progress at your own pace from walking with a walker or crutches to a cane; then to no assistive devices. C. Make walking a part of your daily routine. Be up as much as comfortable with rest periods throughout the day. Rest with leg elevation is very important. Use the ice wrap frequently for the first 3-4 weeks. D. There are no restrictions on activities. You may ride in a car, shop, pa rticipate in glazing superintendent and all social activities. E. Wear the long elastic stockings (AVA hose) 20 hours a day for 2 weeks after surgery. They can be removed several times a day for laundering and for a bath. F. You may shower, no tub baths until cleared by your doctor. SPECIAL CARE INSTRUCTIONS: VERY IMPORTANT TO READ AND REVIEW A. There are a few signs you need to watch for after you are home. Call [facility] if you notice any of the followin. Increased severe knee pain. Some pain is expected especially when you exercise. 2. Increased swelling in your leg or knee; pain or swelling of the calf muscle in either lower leg. 3. Any fluid drainage from the incision. 4. Shortness of breath or chest pain. B. Please call [facility] at if you have any concerns or questions about your operation or recovery. The doctor or his nurse will return your call promptly. C. You must take antibiotics before dental work, bladder, bowel or other surgery. Your doctor will provide you with a permanent care to carry describing this precaution. IMPORTANT: * REMEMBER TO TAKE ASPIRIN, 81 MG, TWICE DAILY FOR 4 WEEKS UNLESS OTHERWISE DIRECTED. THIS IS YOUR BLOOD THINNER. * HIGH RISK PATIENTS MAY BE PRESCRIBED A STRONGER BLOOD THINNER. THIS WILL BE PROVIDED AT DISCHARGE. * CALL IF INCREASED PAIN, REDNESS, DRAINAGE OR FEVER GREATER THAT 101. * WEAR AVA HOSE 20 HOURS PER DAY FOR 2 WEEKS. * Blanca Dressing - This is a large suction dressing covering your incision. This will help pull any excess drainage from the wound and allow your incision to heal properly. You may shower with this if you can keep the unit outside of the shower. If any bleeding or leakage is noted please call your doctor's office. This will remain on your incision for 7 days and then should be removed. This can be done yourself or by the home nursing staff if applicable. The entire unit is disposable once removed. Once removed, keep incision clean and dry. If redness or drainage is noted, please call your surgeon. . Once your blanca dressing has been removed, please follow wound care instructions below. * DERMABOND Prineo- This is a mesh tape dressing that is covered with glue. It should remain in place until the incision is properly healed, usually 10-14 days. This dressing is designed to naturally slough off. You may trim the excess mesh tape as it peels off. Incision may be briefly wet in a shower. Dry immediately by blotting with a clean, dry towel. Do not bath or swim until instructed by your doctor. Do not scratch, rub, or pick at the dressing. Do not apply any topical ointments or lotions until dressing is completely removed and/or instructed by your doctor. There may be a small piece of suture material at one end of your incision. Do not pull or trim this. If it is bothersome or catching on clothing, you may cover it with a band-aid. FOLLOW UP VISIT: If appointment is not already scheduled: Please call [facility] to make a follow-up appointment for 2 weeks after your surgery at . Stand-Alone Forms: [facility], Pain - Opioid Pain Management, Smoking Cessation Medications and DC Order Prescriptions: New acetaminophen [Tylenol Extra Strength] 500 mg Tablet 1,000 mg PO Q8 14 Days Qty: 84 0RF aspirin 81 mg Tablet,Delayed Release (Dr/Ec) 81 mg PO BID 30 Days Qty: 60 0RF cefadroxil 500 mg capsule 500 mg PO BID Qty: 28 1RF oxycodone 5 mg tablet 5 mg PO Q4H MDD 6 PRN (Reason: pain) Qty: 30 0RF Continued metformin 1,000 mg tablet 1,000 mg PO BID Qty: 180 3RF Mounjaro 2.5 mg/0.5 mL pen injector 2.5 mg subcut ONCE Qty: 2 4RF Rx Instructions: Inject 2.5 mg into the abdomen once a week. atorvastatin 40 mg tablet 40 mg PO HS tamsulosin 0.4 mg capsule 0.4 mg PO HS Discontinued acetaminophen [Tylenol Extra Strength] 500 mg tablet 1,000 mg PO UD PRN (Reason: Pain) aspirin 81 mg tablet,delayed release (DR/EC) 81 mg PO HS Discharge Orders: Discharge Order (Routine); Ordered 04/04/23 Ordered By: Talha Rainey/Other Patient Handouts: DVT Post Op Prevention Admission Data Admit Date/Time: 04/03/23 10:12 Attending Provider: Bob Porter Admit Provider: Bob Porter Primary Care Provider: Tosin Talley Other Interventions: Discharge Summary Assessment (RN) Last Done: 04/04/23 15:07
== END 2023-04-04 16:05 | disposition home or self-care (01) ==
LOC: ASU 06:31 → 3N 06:31